=== PATIENT | male | born 1960 ===

== ENCOUNTER 2018-05-08 13:01 | Inpatient (IN) | payer OTHER, MEDICARE ==
[~2018-05-08] VITALS: Ht 175.3 cm; Wt 123.0 kg
[~2018-05-08 13:01] MED LIST: AMLO10 PO; AMOCLA875 PO; ASPI81CH PO; HYDACE5 PO; HYDCHL25 PO; LISI20 PO; LOVA40 PO; SILD50TA PO
[2018-05-08 13:38] LABS: BASOPHILS ABSOLUTE AUTO 0.03 K/mm3 (0.00-0.23); BASOPHILS PERCENT AUTO 0 % (0-2); EOSINOPHILS PERCENT AUTO 0 % (0-6); Hematocrit 37.1 % (37.0-53.0); Hemoglobin 13.8 g/dL (13.5-17.5); IMMATURE GRAN ABSOLUTE AUTO 0.07 K/mm3 (0.00-0.10); IMMATURE GRAN PERCENT AUTO 1 % (0-1); LYMPHOCYTES PERCENT AUTO 4 % (21-46); MONOCYTES ABSOLUTE AUTO 0.56 K/mm3 (0.16-1.47); MONOCYTES PERCENT AUTO 7 % (4-13); Mean Corpuscular HGB 34.6 pg (26.0-34.0); Mean Corpuscular HGB Conc 37.2 g/dL (31.5-36.5); Mean Corpuscular Volume 93 fL (80-100); Mean Platelet Volume 9.9 fL (9.1-12.4); NEUTROPHILS ABSOLUTE AUTO 6.84 K/mm3 (1.96-9.15); NEUTROPHILS PERCENT AUTO 88 % (41-73); Platelet Count 128 K/mm3 (150-400); RDW Coefficient Variation 12.2 % (11.7-14.2); Red Blood Cell Count 3.99 M/mm3 (4.30-5.90)
[2018-05-08 13:54] LABS: Albumin, Blood 3.4 g/dL (3.4-5.0); Albumin/Globulin Ratio 0.9 (0.8-1.8); Bun/Creatinine Ratio 11.5 (12.0-20.0); Calcium, Blood 8.8 mg/dL (8.5-10.1); Creatinine, Blood 1.57 mg/dL (0.60-1.20); Globulin, Blood 3.6 g/dL (2.2-4.0); Potassium, Blood 3.3 mmol/L (3.5-5.5)
[2018-05-08 15:11] LABS: Hematocrit 37.1 % (37.0-53.0); Hemoglobin 13.8 g/dL (13.5-17.5); Mean Corpuscular HGB 34.2 pg (26.0-34.0); Mean Corpuscular HGB Conc 37.2 g/dL (31.5-36.5); Mean Corpuscular Volume 92 fL (80-100); Mean Platelet Volume 10.2 fL (9.1-12.4); Platelet Count 121 K/mm3 (150-400); RDW Coefficient Variation 12.4 % (11.7-14.2); RDW Standard Deviation 41.5 fL (35.1-46.3); Red Blood Cell Count 4.03 M/mm3 (4.30-5.90); White Blood Cell Count 6.97 K/mm3 (4.00-11.30)
[2018-05-08 15:26] LABS: Albumin, Blood 3.4 g/dL (3.4-5.0); Albumin/Globulin Ratio 0.9 (0.8-1.8); Bilirubin, Total 1.9 mg/dL (0.1-1.0); Bun/Creatinine Ratio 12.8 (12.0-20.0); Calcium, Blood 8.9 mg/dL (8.5-10.1); Creatinine, Blood 1.49 mg/dL (0.60-1.20); Globulin, Blood 3.7 g/dL (2.2-4.0); Potassium, Blood 3.4 mmol/L (3.5-5.5); Total Protein, Blood 7.1 g/dL (6.4-8.2)
[2018-05-08 15:31] LABS: BAND PERCENT MAN 3 % (0-8); BASOPHILS ABSOLUTE MAN 0.06 K/mm3 (0.00-0.23); BASOPHILS PERCENT MAN 1 % (0-2); EOSINOPHILS PERCENT MAN 0 % (0-6); LYMPHOCYTES ABSOLUTE MAN 0.41 K/mm3 (0.84-5.20); LYMPHOCYTES PERCENT MAN 6 % (21-46); MONOCYTES PERCENT MAN 3 % (4-13); NEUTROPHILS ABSOLUTE MAN 6.27 K/mm3 (1.96-9.15); SEG NEUTROPHILS PERCENT MAN 87 % (41-73); TOTAL CELLS COUNTED 100
[2018-05-09 05:12] LABS: Hematocrit 34.6 % (37.0-53.0); Hemoglobin 12.7 g/dL (13.5-17.5); Mean Corpuscular HGB 34.4 pg (26.0-34.0); Mean Corpuscular HGB Conc 36.7 g/dL (31.5-36.5); Mean Corpuscular Volume 94 fL (80-100); Mean Platelet Volume 10.3 fL (9.1-12.4); Platelet Count 110 K/mm3 (150-400); RDW Coefficient Variation 12.6 % (11.7-14.2); RDW Standard Deviation 43.4 fL (35.1-46.3); Red Blood Cell Count 3.69 M/mm3 (4.30-5.90); White Blood Cell Count 6.45 K/mm3 (4.00-11.30)
[2018-05-09 05:46] LABS: Anion Gap 9 mmol/L (6-16); Blood Urea Nitrogen 15 mg/dL (8-24); Bun/Creatinine Ratio 12.8 (12.0-20.0); CO2, Blood 28 mmol/L (21-32); Calcium, Blood 8.5 mg/dL (8.5-10.1); Chloride, Blood 94 mmol/L (98-108); Creatinine, Blood 1.17 mg/dL (0.60-1.20); Glomerular Filtration Rate >60 (60-); Glucose, Blood 125 mg/dL (70-99); Potassium, Blood 3.1 mmol/L (3.5-5.5); Sodium, Blood 131 mmol/L (136-145)
[2018-05-10 04:59] LABS: Albumin, Blood 2.8 g/dL (3.4-5.0); Anion Gap 8 mmol/L (6-16); Blood Urea Nitrogen 9 mg/dL (8-24); Bun/Creatinine Ratio 10.1 (12.0-20.0); CO2, Blood 29 mmol/L (21-32); Calcium, Blood 8.3 mg/dL (8.5-10.1); Chloride, Blood 96 mmol/L (98-108); Creatinine, Blood 0.89 mg/dL (0.60-1.20); Glomerular Filtration Rate >60 (60-); Glucose, Blood 123 mg/dL (70-99); Phosphorus, Blood 2.8 mg/dL (2.5-4.9); Potassium, Blood 3.6 mmol/L (3.5-5.5); Sodium, Blood 133 mmol/L (136-145)
[2018-05-11 05:17] LABS: Hematocrit 32.1 % (37.0-53.0); Hemoglobin 11.9 g/dL (13.5-17.5); Mean Corpuscular HGB Conc 37.1 g/dL (31.5-36.5); Mean Corpuscular Volume 92 fL (80-100); Mean Platelet Volume 10.1 fL (9.1-12.4); Platelet Count 130 K/mm3 (150-400); RDW Coefficient Variation 12.3 % (11.7-14.2); RDW Standard Deviation 41.2 fL (35.1-46.3); White Blood Cell Count 7.11 K/mm3 (4.00-11.30)
[2018-05-11 05:39] LABS: Anion Gap 9 mmol/L (6-16); Blood Urea Nitrogen 8 mg/dL (8-24); Bun/Creatinine Ratio 10.3 (12.0-20.0); CO2, Blood 28 mmol/L (21-32); Calcium, Blood 8.8 mg/dL (8.5-10.1); Chloride, Blood 96 mmol/L (98-108); Creatinine, Blood 0.78 mg/dL (0.60-1.20); Glomerular Filtration Rate >60 (60-); Glucose, Blood 120 mg/dL (70-99); Potassium, Blood 3.5 mmol/L (3.5-5.5); Sodium, Blood 133 mmol/L (136-145)
[2018-05-12] MEDS ORDERED: HYDR1TAB94 PO (11:25)
[2018-05-12] MEDS ORDERED: MELA3 PO (11:26)
[2018-05-12] MEDS ORDERED: CEPH500 PO (11:26)
[2018-05-12] MEDS ORDERED: BACI500TO TOP (14:04)
== END 2018-05-12 14:13 | disposition home or self-care (01) | DRG 603 ==
LOC: ER 13:01 → MEDS 17:08 → ENPENDDIS 05-12 10:00 → MEDS 05-12 14:13
PROVIDERS: Emergency Medicine; Internal Medicine; Nurse Practitioner Acute Care
DX: L03.115 Cellulitis of right lower limb (principal); N17.9 Acute kidney failure, unspecified; I10 Essential (primary) hypertension; E78.5 Hyperlipidemia, unspecified; E66.9 Obesity, unspecified; D69.6 Thrombocytopenia, unspecified; S80.811A Abrasion, right lower leg, initial encounter
CPT/HCPCS: 36415; 80048; 80053; 80069; 83605; 83735; 85025; 85027; 85651; 87040; 93971; 96360; 99285; J0690; J1650; J3475; J3480; J7030

== ENCOUNTER 2019-06-14 16:43 | Emergency (ER) | payer OTHER, MEDICARE ==
[~2019-06-14] VITALS: Ht 177.8 cm; Wt 127.0 kg
[~2019-06-14 16:43] MED LIST changes: +BACI500TO TOP; +CEPH500 PO; +HYDR1TAB94 PO; +MELA3 PO
[2019-06-14] MEDS ORDERED: Norco 5-325 Ta1 EACH PO (17:45)
== END 2019-06-14 18:02 | disposition home or self-care (01) ==
LOC: ER 16:43
DX: M54.42 Lumbago with sciatica, left side (principal); G89.29 Other chronic pain; Z79.899 Other long term (current) drug therapy; Z79.82 Long term (current) use of aspirin; I10 Essential (primary) hypertension; E78.00 Pure hypercholesterolemia, unspecified
CPT/HCPCS: 72100; 73502; 99283-25